=== PATIENT | male | born 1960 | race Caucasian/White ===

== ENCOUNTER 2019-06-02 11:40 | Emergency (ER) | payer BC, OTHER ==
[~2019-06-02] VITALS: Ht 193 cm; Wt 108.1 kg
--- OUTSIDE RECORDS SUMMARY | 2019-06-02 11:43 | XMS REPORT ---
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 Allergies, Adverse Reactions, Alerts This patient has no known allergies or adverse reactions. Medications This patient has no known medications. Encounters Start Date/Time End Date/Time Encounter Type Admission Type Attending [facility] Care Facility Care Department Encounter ID 2016-10-26 13:52:[address] [facility] [id number] 2016-10-26 13:47:[address] [facility] [id number] 2016-10-24 10:07:[address] [facility] [id number] 2019-07-11 00:00:00 2019-07-11 00:00:[address] [facility] [id number] 2019-06-18 00:00:00 2019-06-18 00:00:[address] [facility] [id number] 2019-06-17 00:00:00 2019-06-17 00:00:[address] [facility] [id number] 2019-06-05 00:00:00 2019-06-05 00:00:[address] [facility] [id number] 2019-05-30 00:39:59 2019-05-30 00:39:59 Emergency [facility] [id number] 2019-05-20 10:29:22 2019-05-20 10:29:[address] [facility] [id number] 2019-05-20 00:00:00 2019-05-20 00:00:[address] [facility] [id number] 2019-05-19 08:59:49 2019-05-19 08:59:[address] [facility] [id number] 2019-05-15 16:24:08 2019-05-15 16:24:[address] [facility] [id number] 2019-05-15 14:34:54 2019-05-15 14:34:[address] [facility] [id number] 2019-05-15 00:00:00 2019-05-15 00:00:[address] [facility] [id number] 2019-05-13 12:21:24 2019-05-13 12:21:[address] [facility] [id number] 2019-05-06 14:18:21 2019-05-06 14:18:[address] [facility] [id number] 2019-03-25 10:33:49 2019-03-25 10:33:[address] [facility] [id number] 2019-03-20 07:57:36 2019-03-20 07:57:[address] [facility] [id number] 2019-03-20 00:00:00 2019-03-20 00:00:[address] [facility] [id number] 2019-02-12 10:35:58 2019-02-12 10:35:[address] [facility] [id number] 2019-01-27 08:22:36 2019-01-27 08:22:[address] [facility] [id number] 2019-01-27 00:00:00 2019-01-27 00:00:[address] [facility] [id number] 2019-01-17 11:43:54 2019-01-17 11:43:[address] [facility] [id number] 2019-01-09 07:11:20 2019-01-09 07:11:[address] [facility] [id number] 2019-01-09 07:11:15 2019-01-09 07:11:[address] [facility] [id number] 2018-11-19 10:07:59 2018-11-19 10:07:[address] [facility] [id number] 2018-11-19 08:37:44 2018-11-19 08:37:[address] [facility] [id number] 2018-11-19 00:00:00 2018-11-19 00:00:[address] [facility] [id number] 2018-11-04 13:46:58 2018-11-04 13:46:[address] [facility] [id number] 2018-10-01 12:47:38 2018-10-01 12:47:38 Outpatient [facility] [id number] 2018-09-16 07:51:03 2018-09-16 07:51:[address] [facility] [id number] 2018-08-21 08:42:42 2018-08-21 08:42:[address] [facility] [id number] 2018-08-13 11:17:42 2018-08-13 11:17:[address] [facility] [id number] 2018-08-13 10:47:42 2018-08-13 10:47:[address] [facility] [id number] 2018-07-18 10:02:16 2018-07-18 10:02:[address] [facility] [id number] 2018-07-16 13:25:04 2018-07-16 13:25:[address] [facility] [id number] 2018-07-16 09:01:51 2018-07-16 09:01:[address] [facility] [id number] 2018-07-15 14:47:49 2018-07-15 14:47:[address] [facility] [id number] 2018-07-03 00:00:00 2018-07-03 00:00:[address] [facility] [id number] 2018-06-17 10:48:49 2018-06-17 10:48:[address] [facility] [id number] 2018-06-14 12:23:23 2018-06-14 12:23:[address] [facility] [id number] 2018-06-14 10:41:55 2018-06-14 10:41:[address] [facility] [id number] 2018-06-14 00:00:00 2018-06-14 00:00:[address] [facility] [id number] 2018-06-10 13:44:58 2018-06-10 13:44:[address] [facility] [id number] 2018-06-07 13:55:00 2018-06-07 13:55:[address] [facility] [id number] 2018-06-06 11:25:31 2018-06-06 11:25:[address] [facility] [id number] 2018-06-06 09:28:12 2018-06-06 09:28:[address] [facility] [id number] 2018-06-06 00:00:00 2018-06-06 00:00:[address] [facility] [id number] 2018-03-27 09:37:26 2018-03-27 09:37:[address] [facility] [id number] 2018-02-25 00:00:00 2018-02-25 00:00:[address] [facility] [id number] 2018-02-18 15:03:48 2018-02-18 15:03:[address] [facility] [id number] 2018-02-07 00:00:00 2018-02-07 00:00:[address] [facility] [id number] 2018-01-29 14:42:42 2018-01-29 14:42:[address] [facility] [id number] 2018-01-29 13:38:19 2018-01-29 13:38:[address] [facility] [id number] 2018-01-29 13:19:22 2018-01-29 13:19:[address] [facility] [id number] 2018-01-29 00:00:00 2018-01-29 00:00:[address] [facility] [id number] 2018-01-29 00:00:00 2018-01-29 00:00:[address] [facility] [id number] 2018-01-22 00:00:00 2018-01-22 00:00:[address] [facility] [id number] 2017-12-12 13:18:24 2017-12-12 13:18:[address] [facility] [id number] 2017-11-19 12:59:24 2017-11-19 12:59:[address] [facility] [id number] 2017-11-08 00:00:00 2017-11-08 00:00:[address] [facility] [id number] 2017-11-05 08:00:08 2017-11-05 08:00:[address] [facility] [id number] 2017-10-25 15:10:28 2017-10-25 15:10:[address] [facility] [id number] 2017-10-25 14:09:59 2017-10-25 14:09:[address] [facility] [id number] 2017-10-17 00:00:00 2017-10-17 00:00:[address] [facility] [id number] 2017-10-12 00:00:00 2017-10-12 00:00:[address] [facility] [id number] 2017-10-05 14:10:12 2017-10-05 14:10:[address] [facility] [id number] 2017-10-02 07:46:14 2017-10-02 07:46:[address] [facility] [id number] 2017-09-24 14:33:01 2017-09-24 14:33:[address] [facility] [id number] 2017-09-07 16:26:38 2017-09-07 16:26:[address] [facility] [id number] 2017-08-15 15:29:59 2017-08-15 15:29:[address] [facility] [id number] 2017-05-09 00:00:00 2017-05-09 00:00:[address] [facility] [id number] 2017-04-25 00:00:00 2017-04-25 00:00:[address] [facility] [id number] 2017-04-25 00:00:00 2017-04-25 00:00:[address] [facility] [id number] 2017-01-29 00:00:00 2017-01-29 00:00:[address] [facility] [id number] 2017-01-01 15:47:07 2017-01-01 15:47:[address] [facility] [id number] 2016-12-07 12:35:41 2016-12-07 12:35:[address] [facility] [id number] 2016-11-24 10:22:40 2016-11-24 10:22:[address] [facility] [id number] 2016-11-15 11:43:00 2016-11-15 11:43:00 Outpatient [facility] [id number] 2016-11-15 00:00:00 2016-11-15 00:00:[address] [facility] [id number] 2016-11-13 13:52:03 2016-11-13 13:52:[address] [facility] [id number] 2016-11-08 09:30:32 2016-11-08 09:30:[address] [facility] [id number] 2016-11-08 00:00:00 2016-11-08 00:00:[address] [facility] [id number] 2016-11-06 10:30:08 2016-11-06 10:30:[address] [facility] [id number] 2016-10-30 00:00:00 2016-10-30 00:00:[address] [facility] [id number] 2016-10-27 07:54:46 2016-10-27 00:00:[address] [facility] [id number] 2016-10-25 19:00:20 2016-10-25 00:00:[address] [facility] [id number] 2016-10-23 14:19:07 2016-10-23 14:19:07 Inpatient [facility] [id number] 2016-10-16 00:00:00 2016-10-16 00:00:[address] [facility] [id number] 2016-10-11 10:48:37 2016-10-11 10:48:[address] [facility] [id number] 2016-10-11 09:20:17 2016-10-11 09:20:[address] [facility] [id number] 2016-10-11 08:16:58 2016-10-11 08:16:[address] [facility] [id number] 2016-10-02 14:41:01 2016-10-02 14:41:[address] [facility] [id number] 2016-09-22 14:11:01 2016-09-22 14:11:[address] [facility] [id number] 2016-09-07 00:00:00 2016-09-07 00:00:[address] [facility] [id number] 2016-08-30 08:55:05 2016-08-30 08:55:[address] [facility] [id number]
[2019-06-02] MEDS ORDERED: BACITRACIN ZINC 0.9GM TP ONE (12:10)
[2019-06-02 12:11] VITALS: BP 131/74
[2019-06-02] MEDS ORDERED: BACITRACIN ZINC 15 GM OINT TOP SCH (12:15)
== END 2019-06-02 12:18 | disposition home or self-care (01) ==
LOC: FSED 11:40
DX: T81.32XA Disruption of internal operation (surgical) wound, not elsewhere classified, initial encounter (principal); I10 Essential (primary) hypertension; E11.9 Type 2 diabetes mellitus without complications
CPT/HCPCS: 99283

== ENCOUNTER 2021-06-13 17:52 | Emergency (ER) | payer OTHER ==
[~2021-06-13] VITALS: Ht 193 cm; Wt 108.0 kg
[2021-06-13] MEDS ORDERED: KETOROLAC TROMETHAMINE 60 MG/2 ML VIAL IM ONE (18:15)
[2021-06-13] MEDS ORDERED: KETOROLAC TROMETHAMINE 60 MG/2 ML VIAL ONE (18:16)
== END 2021-06-13 19:35 | disposition home or self-care (01) ==
LOC: ER 18:04
DX: S39.012A Strain of muscle, fascia and tendon of lower back, initial encounter (principal); S29.012A Strain of muscle and tendon of back wall of thorax, initial encounter; V43.52XA Car driver injured in collision with other type car in traffic accident, initial encounter; Y92.488 Other paved roadways as the place of occurrence of the external cause; I10 Essential (primary) hypertension; E11.9 Type 2 diabetes mellitus without complications; E78.5 Hyperlipidemia, unspecified; Z86.73 Personal history of transient ischemic attack (TIA), and cerebral infarction without residual deficits; F17.210 Nicotine dependence, cigarettes, uncomplicated
CPT/HCPCS: 71046; 72070; 72100; 99283; J1885